=== PATIENT | male | born 1975 | race Caucasian/White ===

== ENCOUNTER 2018-08-09 19:45 | Emergency (ER) | payer MEDICAID ==
[~2018-08-09] VITALS: Ht 177.8 cm; Wt 99.5 kg
[2018-08-09 20:21] VITALS: Ht 177.8 cm; Wt 99.5 kg
[2018-08-09 21:52] VITALS: BP 106/73
== END 2018-08-09 21:53 | disposition home or self-care (01) ==
LOC: ED 19:45
DX: H01.003 Unspecified blepharitis right eye, unspecified eyelid (principal)

== ENCOUNTER 2020-02-22 08:42 | Emergency (ER) | payer MEDICAID, SELFPAY ==
[~2020-02-22] VITALS: Ht 170.2 cm; Wt 90.7 kg
[2020-02-22 08:47] VITALS: Ht 170.2 cm; Wt 90.7 kg
[2020-02-22 09:07] VITALS: BP 149/89
== END 2020-02-22 12:22 | disposition home or self-care (01) ==
LOC: ED 08:42
DX: R07.89 Other chest pain (principal); R06.02 Shortness of breath
CPT/HCPCS: Q0092